=== PATIENT | male | born 1980 | race Hispanic/Latino ===

== ENCOUNTER 2017-03-07 17:30 | Observation (INO) | payer BC, OTHER ==
[2017-03-07 18:28] LABS: #Basophils 0.1 thou/uL (0.0-0.2); #Eosinphils 0.1 thou/uL (0.0-0.7); #Lymphocytes 1.6 thou/uL (1.20-3.40); #Monocytes 0.7 thou/uL (0.11-0.59); #Neutrophils 5.8 thou/uL (1.40-6.50); %Basophils 0.8 % (0.0-1.0); %Eosinophils 1.7 % (0.0-10.0); %Lymphocytes 18.9 % (21.0-51.0); %Monocytes 8.6 % (0.0-10.0); Hemoglobin 17.7 g/dL (14.0-18.0); Mean Corpuscular HGB CONC 34.6 g/dL (32.0-36.0); Mean Corpuscular Hemoglobin 30.2 pg (27.0-31.0); Mean Corpuscular Volume 87.2 fl (80.0-94.0); Mean Platelet Volume 8.5 fL (7.4-10.4); Platelet Count 157 thou/uL (130-400); RBC Distribution Width 11.8 % (11.5-14.5); Red Blood Cell (RBC) Count 5.85 mill/uL (4.70-6.10); White Blood Cell (WBC) Count 8.2 thou/uL (4.8-10.8)
[2017-03-07 18:32] LABS: ALT (SGPT) 82 U/L (8-55); AST (SGOT) 48 U/L (5-34); Albumin 4.3 g/dL (3.5-5.0); Alkaline Phosphatase 123 U/L (40-150); Anion Gap 12 mmol/L (10-20); BUN (Urea Nitrogen) 14 mg/dL (8.9-20.6); Bilirubin, Total 0.8 mg/dL (0.2-1.2); Calc. Creatinine Clearance 0 mL/min (70-130); Calcium 10.1 mg/dL (7.8-10.44); Carbon Dioxide 28 mmol/L (22-29); Chloride 97 mmol/L (98-107); Estimated GFR-MDRD Greater than 90; Globulin 3.8 g/dL (2.4-3.5); Glucose 306 mg/dL (70-105); Potassium 4.3 mmol/L (3.5-5.1); Protein, Total 8.1 g/dL (6.0-8.3); Sodium 133 mmol/L (136-145)
[2017-03-07] MEDS ORDERED: Meclizine HCl 25 MG TAB ONE (18:35)
--- NOTE | 2017-03-07 18:45 | CT ---
NONCONTRAST CT HEAD: 03/07/17 HISTORY: Frontal headache. Blurred vision. COMPARISON: None available. FINDINGS: There is no evidence of a hemorrhage, acute infarction, mass effect or midline shift. Ventricular sys tem is normal in size, shape, and position. Mild mucosal thickening is seen in each maxillary antrum. Mastoid air cells are clear. Calvarial structures have a normal appearance. IMPRESSION: 1. No acute intracranial abnormalities demonstrated. 2. Mild sinus disease. POS: [facility]
[2017-03-07] MEDS ORDERED: Ondansetron HCl/PF 4 MG/2 ML Vial IVP PRN (22:51)
[2017-03-07] MEDS ORDERED: Acetaminophen 325 MG TAB PO PRN (22:51)
[2017-03-07] MEDS ORDERED: Meclizine HCl 25 MG TAB PO PRN (22:51)
[2017-03-07] MEDS ORDERED: Ondansetron ODT 4 MG TAB SL PRN (22:51)
[2017-03-07] MEDS ORDERED: hydrALAZINE 20 MG/ML VIAL SLOW IVP PRN (23:15)
[2017-03-07] MEDS ORDERED: Labetalol HCl 100 MG/20 ML VIAL SLOW IVP PRN (23:15)
[2017-03-07] MEDS ORDERED: Dextrose 5% in Water 1,000 ML IV PRN (23:21)
[2017-03-07] MEDS ORDERED: HumaLOG 300 UNITS/3 ML VIAL SC PRN (23:21)
[2017-03-07] MEDS ORDERED: Dextrose 50% Abboject 50 ML SYRINGE SLOW IVP PRN (23:21)
[2017-03-08] MEDS: Metoclopramide HCl 10 MG/2 ML VIAL IVP PRN ×2 (00:04→06:23)
[2017-03-08 01:03] LABS: Ferritin 212.35 ng/mL (22-322)
[2017-03-08 01:16] LABS: HBSAg Index 0.18 S/CO (0-0.99); Hep B Core Total Ab Non-Reactive (NonReactive); Hep B Core Total Index 0.11 S/CO (0-0.79); Hep B Surf Ag Non-Reactive S/CO (NonReactive); Hep C IgG Ab Non-Reactive (NonReactive); Hep C Index 0.09 S/CO (0-0.79)
[2017-03-08 01:49] LABS: HBSAB Concentration 21.96 mIU/mL; Hep B Surf AB Reactive (NonReactive)
[2017-03-08 06:11] LABS: Cardiac Risk 6.8 (Less than 4.5)
[2017-03-08 06:35] VITALS: BMI 36.6
--- NOTE | 2017-03-08 06:37 | HP ---
CHIEF COMPLAINT: Vision changes. HISTORY OF PRESENT ILLNESS: This is a 36-year-old male with a 4-day history of headache and double vision that has been just not improving for which he decided to come to the [facility]. He says starting Monday, he started having some double vision when he looked in some directions with associated headache that he describes as frontal, pulsating,5/10 at its worst, with associated photophobia and nausea. He has been treated with migraine medications by his PCP with not much improvement. He has had history in the past of his right eye not being able to look in a certain direction, but he was told by his master scheduler that there is not much he can do and just wait for it to improve. Other than that, he denies any chest pain, shortness of breath, palpitations, cough, congestion, numbness, weakness. He does endorse some dizziness but not associated with head movement at all, just whenever his vision is double. PAST MEDICAL HISTORY: Includes hypertension, diabetes, hyperlipidemia, and GERD. PAST SURGICAL HISTORY: He has a right knee scope, tonsillectomy, left elbow surgery. ALLERGIES: No known drug allergies. MEDICATIONS: He takes a statin, Toujeo and NovoLog, as well as lisinopril at home, and omeprazole. FAMILY HISTORY: Positive for diabetes, hypertension, hyperlipidemia. SOCIAL HISTORY: Denies tobacco, ethanol, or drug use. PHYSICAL EXAMINATION: VITAL SIGNS: Includes most recent blood pressure 156/77, pulse 66, respirations 12, O2 sat 95% on room air. GENERAL: No acute distress, sleeping comfortably in bed, easily awoken, covering his eyes whenever I turned on the light. HEENT: Pupils equal, round, and reactive to light. No icterus or injection. Moist mucous membranes without obvious erythema. Pinna normal. Nares patent. NECK: Trachea midline and mobile. CARDIOVASCULAR: Regular rate and rhythm without murmurs, gallops, or rubs. No peripheral edema. LUNGS: Clear to auscultation bilaterally with increased work of breathing. GASTROINTESTINAL: Bowel sounds positive. Nontender to palpation. GENITOURINARY: Deferred. MUSCULOSKELETAL: Without obvious deformity or contracture. He has scar on his left arm from his previous surgery. NEUROLOGIC: Cranial nerves II through XII are intact and symmetric with the exception of cranial nerve III on the right seems to be impaired. He has weakness of medial gaze of the eye as well as difficulty with superior gaze and some difficulty looking up and out with those areas of difficulty, he also endorses diplopia at that time. Other than that, motor is 5/5 in upper and lower extremities. Sensation is intact to light touch throughout. PSYCHIATRIC: Alert and oriented x3. Mood and affect appropriate for current medical condition. LABORATORY DATA: Include normal white count, normal hemoglobin, normal platelet count. Sodium of 133, chloride of 97, potassium of 4.3, carbon dioxide 28, BUN 14, creatinine 0.84, glucose 306, AST 48, ALT 82. CRP less than 0.5. EKG on my read is normal sinus rhythm without obvious ST or T-wave segments. No suspicion of early LA disease. CT head is read as no acute intracranial abnormalities demonstrated and mild sinus disease. ASSESSMENT AND PLAN: 1. Headache with diplopia is a wide differential including just an isolated third nerve palsy versus aneurysm versus subarachnoid hemorrhage versus a complex migraine versus invasive sinus disease versus other headache is likely related to his diplopia. We will treat him as if he is having a migraine. We will order an MRI brain as well as MRA or CTA depending upon preference of Radiology. A low suspicion for subarachnoid hemorrhage as this is day 4 and it was gradual, only 5/10, and it is not the worst headache of his life, although it is different in nature than the headaches he has had before. Low suspicion as well for invasive sinus disease. He is diabetic. We will get A1c, but without any history of fever, cough, congestion, or nasal drainage as well as low in the CT findings, it is likely incidental. 2. Hypertension. We will continue home medications. 3. Hyperlipidemia. We will continue statin and on aspirin while he is here. 4. Elevated liver function tests. We will send hepatitis panel as well as right upper quadrant ultrasound to investigate this further. Ratio is 2:1 ALT and AST but he denies any drinking. 5. Hyponatremia. Normal when corrected for hyperglycemia. 6. Deep venous thrombosis prophylaxis with SCDs. 7. Gastrointestinal prophylaxis with omeprazole. MTDD
--- NOTE | 2017-03-08 06:39 | PDOC.FM ---
- Subjective Subjective: Patient states he had an alright night. He states his headache is improved with the medication. He also notes that his double vision is unchanged. To clarify his headache is only better when he is medicated with current pain level at about a 2. He notes that his vision is still double and he gets nauseas because of this at times. He states he has a PMH of DM, HTN, HLD. His DM is very poorly controlled. He notes no asymmetrical weakness of upper or lower extremities, no hearing loss, no other CN deficits. He otherwise states he is fine. No other complaints offered this morning. - Objective Vital Signs & Weight: Vital Signs (12 hours) Temp Pulse Resp BP Pulse Ox 03/08/17 04:15 98.9 F 73 16 128/70 98 Weight Weight 119.204 kg I&O: 03/06/17 03/07/17 03/08/17 06:59 06:59 06:59 Intake Total 2 Balance 2 Result Diagrams: 03/07/17 17:57 03/07/17 17:57 <Juan Tello - Last Filed: 03/08/17 08:38> - Objective Vital Signs & Weight: Weight Weight 119.204 kg I&O: 03/08/17 03/09/17 03/10/17 06:59 06:59 06:59 Intake Total 244 Output Total 375 Balance -131 Result Diagrams: 03/07/17 17:57 03/07/17 17:57 <Samira Ovalles - Last Filed: 03/09/17 08:25> Phys Exam - Physical Examination R eye medial gaze palsy. Visual acuity intact bilaterally. Light reflex and accomodation present bilaterally Neck: no nodes Respiratory: no wheezing, clear to auscultation bilateral Cardiovascular: RRR, no significant murmur Gastrointestinal: soft, non-tender, no distention, positive bowel sounds Musculoskeletal: no edema, pulses present Neurological: non-focal, normal sensation, moves all 4 limbs Lymphatic: no nodes Psychiatric: normal affect, A&O x 3 Skin: no rash <Juan Tello - Last Filed: 03/08/17 08:38> Dx/Plan (1) Diplopia Code(s): H53.2 - DIPLOPIA Status: Acute (2) Transaminitis Code(s): R74.0 - NONSPEC ELEV OF LEVELS OF TRANSAMNS & LACTIC ACID DEHYDRGNSE Status: Acute (3) DM2 (diabetes mellitus, type 2) Status: Acute (4) HTN (hypertension) Code(s): I10 - ESSENTIAL (PRIMARY) HYPERTENSION Status: Acute (5) HLD (hyperlipidemia) Code(s): E78.5 - HYPERLIPIDEMIA, UNSPECIFIED Status: Acute - Plan Plan: 1. Diplopia - Head CT negative - MRA/MRI pending - Rule out CVA / CN III palsy - Will consider Neuro or Optho consultation pending results. 2. Transaminitis - Hepatitis panel negative - Abdominal US pending 3. DM2 - Continue insulin - Accuchecks - Check HgA1C 4. HTN - Currently under control - Will continue home meds 5. HLD - FLP Cholesterol 210 - Risk Ratio 6.8 - Continue statin therapy Disposition: Patient stable, will await further tests. <Juan Tello - Last Filed: 03/08/17 08:38> Attending Addendum - Attending Addendum I personally evaluated the patient and discussed the management with Dr. Tello on 03/08/16. I agree with the History, Examination, Assessment and Plan documented above with any addition or exceptions noted below- Patient states that SANZ has almost completely resolved. Double vision is improved. Afebrile VSS. A/P: 1) SANZ/ Diplopia - MRI/MRA negative; suspect migraine versus SANZ from double vision. Discussed option for inpatient neuro consult versus outpatient. Patient desires outpatient follow-up. Given that Sanz is improved and negative evaluation patient is stable for discharge. 2) DM- poorly controlled; counseled regarding need for glucose control. Patient verbalized understanding. <Samira Ovalles - Last Filed: 03/09/17 08:25>
[2017-03-08] MEDS: Atorvastatin Calcium 40 MG TAB PO SCH ×2 (08:45→10:55)
[2017-03-08 09:00] LABS: Hemoglobin A1c 11.9 % (4.0-6.0)
[2017-03-08] MEDS ORDERED: Ascorbic Acid 500 mg Chewable Tablet PO SCH (09:00)
[2017-03-08] MEDS ORDERED: Aspirin 81 mg Enteric Coated Tablet PO SCH (09:00)
[2017-03-08] MEDS ORDERED: Lisinopril/Hydrochlorothiazide 20 mg/12.5 mg Tablet PO SCH (09:00)
[2017-03-08] MEDS ORDERED: Insulin Detemir 100 UNITS/ML 80 UNITS in Pre-Filled Syringe 1 EACH SC SCH ×2 (09:00→21:00)
[2017-03-08] MEDS ORDERED: CeleCOXIB 100 MG CAP PO SCH (09:00)
[2017-03-08] MEDS ORDERED: Lorazepam 0.5 MG TAB PO PRN (10:40)
--- NOTE | 2017-03-08 11:02 | HP-2 ---
DATE OF ADMISSION: 03/07/2017 CODE STATUS: FULL. PRIMARY CARE PHYSICIAN: Dr. Kendrick. ATTENDING: Dr. Lopez. RESIDENT: Dr. Santiago Pereyra. CHIEF COMPLAINT: Headache and double vision. 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 He thought it was a sinus headache. He took Tylenol, ibuprofen, did not get any better and then on Monday, he started having double vision that was diagonal. On Monday, he sushila t to [place] [facility] in [place]. They gave him Fioricet. On Monday, he went to his doctor and go t Imitrex. The pain would go away some, but then would come right back pretty quickly and the double vision would never go away. The patient had associated nausea with this. He had no blurry vision a t this time and no other weakness or numbness. In the ER, he was given meclizine 25 mg. PAST MEDICAL HISTORY: 1. Diabetes type 2. 2. Hypertension. 3. Hyperlipidemia. 4. Past history of pancreatitis. PAST SURGICAL HISTORY: 1. Right knee surgery in 2007. 2. Left elbow surgery. 3. Tonsillectomy. ALLERGIES: No known drug allergies. MEDICATIONS: 1. Toujeo 80 units subcu b.i.d. 2. Humalog 20 units subcu t.i.d. 3. Aspirin 81 mg daily. 4. Vitamin C 500 mg p.o. daily. 5. Celebrex 100 mg p.o. daily. 6. Lisinopril/HCTZ 20/12.5 mg 1 tab p.o. daily. 7. Omeprazole 20 mg p.o. daily. 8. Atorvastatin, unknown dose. 9. Atenolol, unknown dose. FAMILY HISTORY: Dad had diabetes type 2 and retinal detachment. Grandfather had CVA when he was in his 80s. SOCIAL HISTORY: Denies tobacco or drug use. Reports occasional alcohol use. Works for the [employer]. REVIEW OF SYSTEMS: General: Denies fever, chills, fatigue. Eyes: Positive for double vision. Neg ative for blurry vision or eye pain. ENT: Positive for nasal congestion, negative for rhinorrhea, s ore throat. Respiratory: Negative for cough, shortness of breath. Cardiovascular: Negative for ch est pain, edema. Gastrointestinal: Negative for nausea, vomiting, diarrhea, abdominal pain. Genito urinary: Negative for dysuria, polyuria. Skin: Negative for rashes, lesions. Musculoskeletal: Ne gative for pain or tenderness. Neurologic: Negative for weakness, numbness, syncope, seizure. Psyc hiatric: Negative for anxiety, depression. PHYSICAL EXAMINATION: VITAL SIGNS: Blood pressure 137/81, pulse 66, respiratory rate 16, temperature 98.6, pulse oximetry 96% on room air. Current weight 122.47 kilograms. GENERAL: Alert, oriented x3, no acute distress, obese, appropriately interactive. EYES: Pupils equal, round, reactive to light. Right eye with lateral gaze at rest, decreased medial rectus and inferior oblique movements on the right, right ptosis. Conjunctivae within normal limits . ENT: Nasal mucosa and oropharynx within normal limits. No tenderness over maxillary or frontal sinu ses. Some tenderness over the right muslim. NECK: Supple, no lymphadenopathy, no thyromegaly, no bruits. CARDIOVASCULAR: Regular rate and rhythm. No murmurs, gallops, 2+ radial and pedal pulses. RESPIRATORY: Normal effort, no retractions, clear to auscultation bilaterally. SKIN: Warm, dry. No cyanosis or lesions. ABDOMEN: Obese, soft, nontender to palpation. Normoactive bowel sounds. No mass or distention. EXTREMITIES: No cyanosis or edema. MUSCULOSKELETAL: Structure and tone within normal limits, 5/5 muscle strength. Full range of motion . NEUROLOGIC: Cerebellum intact. Sensation within normal limits. Cranial nerves and II and IV-XII in tact. Partial cranial nerve III deficit. PSYCHIATRIC: Appropriate. LABORATORY DATA AND IMAGING: WBC 8.2, hemoglobin 17.7, hematocrit 51.1, platelets 157. Sodium 133, corrected to 136, potassium 4.3, chloride 97, CO2 28, BUN 14, creatinine 0.84, GFR greater than 90, g lucose 306, calcium 10.1, total protein 8.1, albumin 4.3, total bilirubin 0.8, AST 48, ALT 82, alkali ne phosphatase 123, ESR 21. CRP less than 0.5. EKG was normal sinus rhythm. CT head showed no acut e intracranial abnormalities, mild mucosal thickening in each maxillary antrum. ASSESSMENT AND PLAN: This is a 36-year-old male who presents with: 1. 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 CT head showed no acute abnormalities. We will get an MRI and MRA to rul e out intracranial mass in the aneurysm. We will continue aspirin and statin q.4 neuro checks and ch patience a TSH. 2. Migraine headache. We will give IV Reglan and Tylenol as needed. We will continue meclizine as this helped in the ED. 3. Transaminitis, unknown cause. We will check a hepatitis B, hepatitis C, ferritin, liver ultrasou nd. We will have follow up with PCP. 4. Hypertension, controlled, likely not contributing to headaches. We will continue home medication s. 5. Hyperlipidemia. We will check fasting lipid panel and continue statin. 6. Diabetes type 2. Continue home dose of Levemir, aggressive sliding scale insulin, Accu-Cheks a.c . and at bedtime, consistent carbohydrate diet. 7. Venous thromboembolism prophylaxis. Lovenox. DISPOSITION: Observation on stroke. Symptomatic medications will be provided. History and physical exam as well as management discussed with Dr. Lopez.
--- NOTE | 2017-03-08 11:02 | ULT ---
LIMITED ABDOMEN ULTRASOUND: HISTORY: Elevated LFTs. COMPARISON: CT from 04/26/2005. FINDINGS: The pancreas is not well seen. The liver is enlarged, greater than 21 cm. Diffusely increased hepat ic echotexture. The gallbladder is unremarkable. The main portal vein is patent with antegrade flow . IMPRESSION: 1. Diffuse hepatic steatosis. 2. Hepatomegaly. POS: [facility]
--- NOTE | 2017-03-08 12:20 | MRI ---
MRA [place] OF [place] WITH 3D VOLUME RENDERING: Clinical history: Headaches. FINDINGS: Each distal carotid artery is patent. No significant stenosis of either MCA. Anterior cerebral arteri es are unremarkable. Images of the distal vertebral arteries and the basilar artery are patent. There is no high grade stenosis of either basilar artery. Within limitations of technique, no discrete int racranial aneurysms are visualized. IMPRESSION: No significant abnormality of the [place]. POS: [facility]
[2017-03-08] MEDS ORDERED: Lorazepam 2 MG/ML VIAL SLOW IVP SCH (12:45)
[2017-03-08 15:38] VITALS: BP 127/68; TEMP 98.5
--- NOTE | 2017-03-08 15:50 | MRI ---
BRAIN MRI WITH AND WITHOUT CONTRAST 03/08/17 CLINICAL HISTORY: Headaches. Third nerve palsy. FINDINGS: There is no evidence of ventriculomegaly, mass effect, midline shift or acute territorial infarction. There is no obvious mass effect at the skull base. No pathologic intra-axial enhancement. There is m ild paranasal sinus mucosal thickening notably at the left maxillary sinus. IMPRESSION: No acute intracranial abnormalities. No evidence of skull base mass. POS: [facility]
[2017-03-08] MEDS ORDERED: Rosuvastatin 10 MG TAB PO SCH (21:00)
[2017-03-09] MEDS ORDERED: FLU VACC QS2017-18 36 mo. & older 0.5 ML SYRINGE IM ONE (09:00)
--- NOTE | 2017-03-09 12:00 | DIS-2 ---
DATE OF ADMISSION: 03/07/2017 DATE OF DISCHARGE: 03/08/2017 RESIDENT: Dr. Tello. ADMITTING ATTENDING: Dr. Lopez. DISCHARGE ATTENDING: Dr. Samira Ovalles. CONSULTATIONS: None. PROCEDURES: The patient underwent a brain CT on 03/07/2017 that showed no acute intracranial abnorma lities, demonstrated mild sinus disease. Also had a brain MRA showed no significant abnormality of t he [place]. Had a brain MRI that showed no acute intracranial abnormalities, no evidence of skull base mass. I had an abdominal ultrasound on 03/08/2017 that showed diffuse hepatic steatosis and hepatomegaly. PRIMARY DIAGNOSES: 1. Diplopia. 2. Transaminitis. 3. Diabetes mellitus type 2. 4. Hypertension. 5. Hyperlipidemia. DISCHARGE MEDICATIONS: 1. Sumatriptan 50 mg. 2. Vitamin C 500 mg. 3. Humalog 20 units subcu t.i.d. with meals. 4. Aspirin 81 mg. 5. Celecoxib 100 mg. 6. Insulin Glargine 80 units subcu b.i.d. 7. Lisinopril/HCTZ 20/12.5. 8. Omeprazole 20 mg. 9. Metoprolol 100 mg. 10. Crestor 10 mg. 11. Metoclopramide 10 mg. DISCONTINUED MEDICATIONS: None. 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 He thought it was a sinus headache. He took Tylenol and ibupro fen, did not get any better and then on Monday he started having double vision that was diagonal. On Monday, he went to [place] [facility] in the [place]. They gave him Fioricet. On Monday, he went t o his doctor and got Imitrex. The pain would go away some, but then it would come right back pretty quickly and double vision would never go away. The patient has had associated nausea with this. He had had no blurry vision at this time and no other weakness or numbness. In the ER, he was given mec lizine 25 mg. During his hospitalization, the patient had some notable lab values of hepatitis B study is negative and hepatitis C antibody negative. His hepatitis B serologies did note that he was immunized for hep atitis B in the past. This patient had a hemoglobin A1c of 11.9. He had a triglyceride level of 249 and cholesterol of 210. TSH of 2.86. This patient otherwise was experiencing diplopia, especially on the right eye and also had nystagmus to his right eye. He had a cranial nerve III palsy that woul d not allow him to abduct his right eye to past midline. The patient underwent MRA and MRI that were unremarkable for acute intracranial abnormalities and so that time, it was felt that it was an isola harley cranial nerve III deficit. The patient did not have any visual acuity problems as his visual acu ity was tested and to be normal. The patient did note that he had blurry vision because he did not f eel like he could focus on everything, the same with both eyes. The patient has had a longstanding h istory of uncontrolled diabetes and said that he will work on that going forward. He has also had di fficulty with his hypertension and also his obesity. The patient notes that his headache was improve d with the medicine and that was no longer his complaint. It was mostly the nausea associated with t he double vision. The nausea improved with the medicine of metoclopramide and so he was discharged w ith that medication to be taken going forward. He had no other acute complications of this event and diplopia did not resolve during this hospitalization. Otherwise, he had no other acute events and h e was discharged on appropriate condition. DISPOSITION: Stable. DISCHARGE INSTRUCTIONS: 1. Location: To be discharged home under the care of himself. 2. Diet will be a heart healthy and a diabetic diet to ensure that we can maximize his health benefi ts from his diseases. 3. Activity will be as tolerated with no restrictions. 4. Follow up will be with his PCP, Dr. Kendrick in 3 days to discuss further management of his headache s and diplopia as well as Dr. Lana Vera in 1 week to get to the bottom of why the diplopia and some of his other cranial nerve deficits have occurred in his recent past. We wish him the best of luck a nd hope he has no further complications from this condition.
== END 2017-03-08 18:35 | disposition home or self-care (01) ==
LOC: ERS 17:30 → 2SW 22:33
PROVIDERS: ADMIT Emergency Medicine; ATTEND Emergency Medicine
DX: H53.2 Diplopia (principal); R74.0 Nonspecific elevation of levels of transaminase and lactic acid dehydrogenase [LDH]; E11.9 Type 2 diabetes mellitus without complications; I10 Essential (primary) hypertension; E78.5 Hyperlipidemia, unspecified; G51.0 Bell's palsy; H55.00 Unspecified nystagmus; E66.9 Obesity, unspecified; K21.9 Gastro-esophageal reflux disease without esophagitis; R51 Headache; R79.89 Other specified abnormal findings of blood chemistry; E87.1 Hypo-osmolality and hyponatremia; H49.00 Third [oculomotor] nerve palsy, unspecified eye; Z68.36 Body mass index [BMI] 36.0-36.9, adult; Z79.4 Long term (current) use of insulin; Z79.82 Long term (current) use of aspirin; Z79.899 Other long term (current) drug therapy; Z90.89 Acquired absence of other organs; Z98.890 Other specified postprocedural states
CPT/HCPCS: 36415; 36416; 70450; 70544; 70553; 76705; 80053; 80061; 82728; 83036; 84443; 85025; 85652; 86140; 86704; 86706; 86803; 87340; 93005; 96374; 96375; 96376; G0378; J1815; J2060; J2765

== ENCOUNTER 2020-04-23 09:15 | Outpatient (CLI) | payer OTHER ==
[2020-04-24 02:35] LABS: SARS-CoV-2 PCR by NAA Not Detected (NotDetected)
== END 2020-04-23 09:16 | disposition home or self-care (01) ==
LOC: LABBT 09:15
PROVIDERS: ATTEND Ophthalmology Retina Specialist
DX: H54.7 Unspecified visual loss (principal); Z20.822 Contact with and (suspected) exposure to COVID-19
CPT/HCPCS: 87635; U0003; U0005

== ENCOUNTER 2020-04-28 10:10 | Day surgery (SDC) | payer OTHER ==
[2020-04-27 12:44] VITALS: BMI 37.6
[~2020-04-28 10:10] MED LIST: Bupivacaine PF 0.75% SDV 10 ML ONE; CEFAZOLIN 1 GM VIAL ONE; EPINEPHrine 0.3 MG in Ophthalmic Irrigation Solution 500 ML IRR SCH; Fentanyl 100 MCG/2 ML VIAL ONE; Lidocaine 1% PF 5 ML VIAL ONE; Lidocaine 4% PF 5 ML AMP ONE; Maxitrol 0.1% Opth Oint 3.5 GM TUBE ONE; Midazolam HCl 2 mg/2 ml Vial ONE; Triamcinolone 40 MG/ML VIAL ONE
[2020-04-28] MEDS ORDERED: Cyclopentolate 1% Opth Drop 2 ML BOT ONE (10:45)
[2020-04-28] MEDS ORDERED: Phenylephrine 2.5% Ophth Soln 5 ML BOT ONE (10:45)
[2020-04-28] MEDS ORDERED: PROPOFOL 20 ML ONE (13:09)
[2020-04-28] MEDS ORDERED: Fentanyl 100 MCG/2 ML VIAL ONE (13:09)
== END 2020-04-28 14:10 | disposition home or self-care (01) ==
LOC: SDC 10:10
PROVIDERS: ATTEND Ophthalmology Retina Specialist
PROC: 08QE3ZZ Repair Right Retina, Percutaneous Approach (ICD-10-PCS; principal; 2020-04-28)
PROC: 08T43ZZ Resection of Right Vitreous, Percutaneous Approach (ICD-10-PCS; principal; 2020-04-28)
DX: E11.3591 Type 2 diabetes mellitus with proliferative diabetic retinopathy without macular edema, right eye (principal); H43.11 Vitreous hemorrhage, right eye; Z79.4 Long term (current) use of insulin; Z79.82 Long term (current) use of aspirin; Z79.899 Other long term (current) drug therapy
CPT/HCPCS: 36416; J0171; J0690; J2250; J2704; J3010; J3301; J3490